=== PATIENT | female | born 1975 | race African-American/Black ===

== ENCOUNTER 2022-01-10 07:15 | Inpatient (IN) | payer SELFPAY ==
[~2022-01-10] VITALS: Ht 160 cm; Wt 111.6 kg
[2022-01-10] MEDS ORDERED: NITROGLYCERIN SUBLINGUAL 0.4 MG BOTTLE OF 25. SL PRN (08:15)
[2022-01-10] MEDS ORDERED: ASPIRIN CHEWABLE 81 MG TABLET. PO ONE (08:15)
[2022-01-10 08:22] LABS: BASO % 0 % (0-3); EOS # 0.1 x10^3/uL (0.0-0.7); EOS % 2 % (0-3); HEMATOCRIT 42.9 % (36.0-47.0); HEMOGLOBIN 14.4 g/dL (12.0-15.5); LYMPH # 1.4 x10^3/uL (1.0-4.8); LYMPH % 27 % (24-48); MEAN CORPUSCULAR HEMOGLOBIN 30 pg (25-35); MEAN CORPUSCULAR HGB CONC 34 g/dL (31-37); MEAN CORPUSCULAR VOLUME 88 fL (79-100); MONO # 0.4 x10^3/uL (0.0-1.1); MONO % 8 % (0-9); NEUT # 3.4 x10^3/uL (1.8-7.7); NEUT % 63 % (31-73); PLATELET COUNT 231 x10^3/uL (140-400); RED BLOOD COUNT 4.85 x10^6/uL (3.50-5.40); RED CELL DISTRIBUTION WIDTH 12.8 % (11.5-14.5); WHITE BLOOD COUNT 5.4 x10^3/uL (4.0-11.0)
[2022-01-10] MEDS: CARVEDILOL 12.5 MG TABLET. PO SCH ×2 (08:23→17:27)
--- NOTE | 2022-01-10 08:27 | RAD ---
EXAMINATION: Chest radiograph. VIEWS: 1 COMPARISON: None INDICATION:46 years, Female, chest pain. FINDINGS: Mild cardiomegaly. Bilateral perihilar ill-defined airspace opacities. No pleural effusion or pneumot horax. No acute osseous process. IMPRESSION: Ill-defined bilateral perihilar airspace opacities, differential consideration includes pulmonary dinora ma versus atypical infection. Electronically signed by: Lucinda Olguin MD (01/10/2022 8:24 AM) [id number]
[2022-01-10 08:31] LABS: CALCIUM 9.1 mg/dL (8.5-10.1); GFR 71.9; POTASSIUM 4.6 mmol/L (3.5-5.1)
--- NOTE | 2022-01-10 08:31 | PHYS DOC ---
Past Medical History Past Medical History: Diabetes-Type II, Hypertension Additional Past Medical Histor: VAGINITIS Past Surgical History: Appendectomy, Cholecystectomy, Hysterectomy Smoking Status: Never Smoker Alcohol Use: None Drug Use: None General Adult EDM: Chief Complaint: CHEST PAIN-CARDIAC NATURE HPI: HPI: Patient is a 46 year old female with a history of diabetes and hypertension who presents with complaints of chest pain. Patient states that for the past week she has had constant left upper chest pain. She states that it radiates into both shoulders and into her back. There are no palliative or provocative factors for the pain. She describes the pain as a pressure. She states it is currently about a 7 or 8 out of 10. She has had some associated nausea but denies any vomiting. She denies any diaphoresis. She states that she ran out of her carvedilol a couple of days ago and has not taken it and therefore has had some elevated blood pressures. She denies any history of DVT or PE. She is currently taking estrogen for the past 3 to 4 months. She denies any recent long car rides or plane rides. She denies any recent surgeries. She denies s moking. She denies any hemoptysis. She denies any history of cancer. Pain was not sudden onset or ripping and tearing. Review of Systems: Review of Systems: Constitutional: Denies fever or chills. [] Eyes: Denies change in visual acuity. [] HENT: Denies nasal congestion or sore throat. [] Respiratory: Denies cough or shortness of breath. [] Cardiovascular: Denies chest pain or edema. [] GI: Denies abdominal pain, nausea, vomiting, bloody stools or diarrhea. [] : Denies dysuria. [] Musculoskeletal: Denies back pain or joint pain. [] Integument: Denies rash. [] Neurologic: Denies headache, focal weakness or sensory changes. [] Endocrine: Denies polyuria or polydipsia. [] Lymphatic: Denies swollen glands. [] Psychiatric: Denies depression or anxiety. [] Heart Score: C/O Chest Pain: Yes HEART Score for Chest Pain: HEART Score for Chest Pain Response (Comments) Value History Moderately Suspicious 1 ECG Nonspecific Repolarizatio 1 Age >45 - < 65 1 Risk Factors 1 or 2 Risk Factors 1 Total 4 Risk Factors: Risk Factors: DM, HTN, family history of CAD, obesity. Risk Scores: Score 0 - 3: 2.5% MACE over next 6 weeks - Discharge Home Score 4 - 6: 20.3% MACE over next 6 weeks - Admit for Clinical Observation Score 7 - 10: 72.7% MACE over next 6 weeks - Early Invasive Strategies Current Medications: Current Medications Medications (Trade) Dose Ordered Sig/Blanca Start Time Stop Time Status Last Admin Dose Admin Aspirin (Aspirin Chewable) 324 mg 1X ONCE 01/10/22 08:15 01/10/22 08:16 DC Carvedilol (Coreg) 12.5 mg BIDWMEALS 01/10/22 08:15 Nitroglycerin (Nitrostat) 0.4 mg PRN Q5MIN PRN 01/10/22 08:15 01/11/22 08:14 Allergies: Allergies: Allergies Coded Allergies Type Severity Reaction Last Updated Verified estradiol Allergy Intermediate 01/10/22 Yes oxycodone Allergy Intermediate 01/10/22 Yes prednisone Allergy Intermediate 01/10/22 Yes Physical Exam: PE: Constitutional: Well developed, well nourished, no acute distress, non-toxic appearance. [] HENT: Normocephalic, atraumatic, bilateral external ears normal, oropharynx moist, no oral exudates, nose normal. [] Eyes: PERRLA, EOMI, conjunctiva normal, no discharge. [] Neck: Normal range of motion, no tenderness, supple, no stridor. [] Cardiovascular:Heart rate regular rhythm, no murmur [] Lungs & Thorax: Bilateral breath sounds clear to auscultation [] Abdomen: Bowel sounds normal, soft, no tenderness, no masses, no pulsatile masses. [] Skin: Warm, dry, no erythema, no rash. [] Back: No tenderness, no CVA tenderness. [] Extremities: No tenderness, no cyanosis, no clubbing, ROM intact, bilateral 1+ edema [] Neurologic: Alert and oriented X 3, normal motor function, normal sensory function, no focal deficits noted. [] Psychologic: Affect normal, judgement normal, mood normal. [] Current Patient Data: Labs: Laboratory Tests Test 01/10/22 08:10 White Blood Count 5.4 x10^3/uL (4.0-11.0) Red Blood Count 4.85 x10^6/uL (3.50-5.40) Hemoglobin 14.4 g/dL (12.0-15.5) Hematocrit 42.9 % (36.0-47.0) Mean Corpuscular Volume 88 fL (79-100) Mean Corpuscular Hemoglobin 30 pg (25-35) Mean Corpuscular Hemoglobin Concent 34 g/dL (31-37) Red Cell Distribution Width 12.8 % (11.5-14.5) Platelet Count 231 x10^3/uL (140-400) Neutrophils (%) (Auto) 63 % (31-73) Lymphocytes (%) (Auto) 27 % (24-48) Monocytes (%) (Auto) 8 % (0-9) Eosinophils (%) (Auto) 2 % (0-3) Basophils (%) (Auto) 0 % (0-3) Neutrophils # (Auto) 3.4 x10^3/uL (1.8-7.7) Lymphocytes # (Auto) 1.4 x10^3/uL (1.0-4.8) Monocytes # (Auto) 0.4 x10^3/uL (0.0-1.1) Eosinophils # (Auto) 0.1 x10^3/uL (0.0-0.7) Basophils # (Auto) 0.0 x10^3/uL (0.0-0.2) Laboratory Tests 01/10/22 08:10 Vital Signs: Vital Signs Date Time Temp Pulse Resp B/P (MAP) Pulse Ox O2 Delivery O2 Flow Rate FiO2 01/10/22 07:45 98.1 83 18 215/114 (147) 99 98.1 EKG: EKG: EKG shows a normal sinus rhythm with a rate of 75. Intervals and axis are normal. There are inferior Q waves in II, III and aVF as well as V1 V2 and V3. No other evidence of ischemia or infarction. Radiology/Procedures: Radiology/Procedures: EXAMINATION: Chest radiograph. VIEWS: 1 COMPARISON: None INDICATION:46 years, Female, chest pain. FINDINGS: Mild cardiomegaly. Bilateral perihilar ill-defined airspace opacities. No pleural effusion or pneumothorax. No acute osseous process. IMPRESSION: Ill-defined bilateral perihilar airspace opacities, differential consideration includes pulmonary edema versus atypical infection. Electronically signed by: Lucinda Olguin MD (01/10/2022 8:24 AM) [id number] Course & Med Decision Making: Course & Med Decision Making Patient is a 46-year-old female with a history of hypertension and diabetes who presents with chest pain. Patient was brought emergently to a room. She was placed on nurse monitoring. She was given aspirin. She was initially hypertensive. She was given a dose of her home carvedilol which she has not taken for the past 2 days. She was also given nitroglycerin for chest pain. Her blood pressure has decreased somewhat. Patient does have bilateral lower extremity edema. Her chest x-ray is concerning for pulmonary edema. Her troponin is negative. EKG shows evidence of inferior and septal Q waves. D- dimer is negative. I do not think this is a pulmonary embolus. I have discussed patient with the hospitalist and will admit to the hospitalist service for diuresis and further cardiac evaluation. [] Dragon Disclaimer: Dragon Disclaimer: This electronic medical record was generated, in whole or in part, using a voice recognition dictation system. Departure Departure Impression: Primary Impression: CHF (congestive heart failure) Qualified Codes: I50.9 - Heart failure, unspecified Additional Impressions: Chest pain Qualified Codes: R07.9 - Chest pain, unspecified Diabetes mellitus Hypertension Qualified Codes: I10 - Essential (primary) hypertension Bilateral lower extremity edema Condition: STABLE Referrals: NO PCP (PCP) LEE KING MD January 10, 2022 08:31
[2022-01-10 08:34] LABS: PREG TEST PT QUAL NEGATIVE (NEG)
[2022-01-10 08:36] LABS: ALBUMIN 3.5 g/dL (3.4-5.0); ALBUMIN/GLOBULIN RATIO 0.7 (1.0-1.7); TOTAL BILIRUBIN 0.3 mg/dL (0.2-1.0); TOTAL PROTEIN 8.2 g/dL (6.4-8.2)
--- NOTE | 2022-01-10 12:04 | HP ---
DATE OF SERVICE: 01/10/2022 ADMIT DATE: 01/10/2022 CHIEF COMPLAINT: Chest pain, shortness of breath. HISTORY OF PRESENT ILLNESS: The patient is a pleasant 46-year-old female who presents to the ER with chest pain that has been occurring for several days, worse with moving, better with sitting still, in the left upper chest radiating to both shoulders. The chest x-ray showing some cardiomegaly and slight vascular congestion. She does appear to have some edema. I discussed the case with ER physician. We are going to admit the patient and consult Cardiology. PAST MEDICAL HISTORY: Diabetes, hypertension, vaginitis, appendectomy, cholecystectomy, hysterectomy. ALLERGIES: ESTRADIOL, OXYCODONE, AND PREDNISONE. FAMILY HISTORY: Coronary artery disease. SOCIAL HISTORY: She does not drink, smoke or take drugs. She is . MEDICATIONS: Reviewed. Please refer to the MRAD. REVIEW OF SYSTEMS: GENERAL: No history of weight change, weakness or fevers. SKIN: No bruising, hair changes or rashes. EYES: No blurred, double or loss of vision. NOSE AND THROAT: No history of nosebleeds, hoarseness or sore throat. HEART: She complains of chest pain. LUNGS: .She complains of shortness of breath. GASTROINTESTINAL: Denies changes in appetite, nausea, vomiting, diarrhea or constipation. GENITOURINARY: No history of frequency, urgency, hesitancy or nocturia. NEUROLOGIC: Denies history of numbness, tingling, tremor or weakness. PSYCHIATRIC: No history of panic, anxiety or depression. ENDOCRINE: No history of heat or cold intolerance, polyuria or polydipsia. EXTREMITIES: Denies muscle weakness, joint pain, pain on walking or stiffness. PHYSICAL EXAMINATION: VITALS: Within normal limits and are stable. GENERAL: No apparent distress. Alert and oriented. HEENT: Normal cephalic atraumatic, external auditory canals are patent EYES: Extraocular muscles are intact, pupils are equally round and reactive to light and accommodation MUSCULOSKELETAL: Well developed, well nourished, good range of motion ENDOCRINE: No thyromegaly was palpated LYMPHATICS: No cervical chain or axillary nodes were noted HEMATOPOIETIC: No bruising NECK: Supple, no JVD, no thyromegaly was noted. LUNGS: She has slight bibasilar crackles. HEART: RRR, S1, S2 present. Peripheral pulses intact, no obvious murmurs were noted. ABDOMEN: Soft, nontender. Positive bowel sounds no organomegaly, normal bowel sounds. EXTREMITIES: She has 2+ edema. NEUROLOGIC: Normal speech, normal tone. A and O x 3, moves all extremities, no obvious focal deficits. PSYCHIATRIC: Normal affect, normal mood. Stable. SKIN: No ulcerations or rashes, good skin turgor, no jaundice. VASCULAR: Good capillary refill, neurovascular bundle appears to be intact. LABORATORY DATA: Troponin is 26. BNP 66. I reviewed the chest x-ray, does show some cardiomegaly and mild vascular congestion. D-dimer 0.27. ASSESSMENT AND PLAN: Chest pain with abnormal chest x-ray. Suspect heart failure. The patient will be admitted. We will check serial enzymes, serial EKGs. Consult Cardiology. Home medications. Deep venous thrombosis prophylaxis. Full code. IV Lasix if Cardiology agrees. P.r.n. nitro. TEE/MELIZA DR: Liudmila TID: [id number]
[2022-01-10] MEDS ORDERED: FUROSEMIDE 40 MG/4 ML VIAL. IVP ONE (12:15)
[2022-01-10] MEDS ORDERED: AMLO-187 PO (12:46)
[2022-01-10] MEDS ORDERED: CARV25TA2 PO (12:46)
[2022-01-10] MEDS ORDERED: LISI10TA16 PO (12:46)
[2022-01-10] MEDS ORDERED: INSU100I13 SQ (12:47)
[2022-01-10] MEDS ORDERED: ASPI81TA59 PO (12:47)
[2022-01-10] MEDS ORDERED: OMEP40CA7 PO (14:31)
[2022-01-10 15:00] VITALS: BP 162/108
[2022-01-10] MEDS ORDERED: DEXTROSE 50% 25 GM / 50ML DISP.SYRIN. IV PRN (15:45)
[2022-01-10] MEDS: ASPIRIN CHEWABLE 81 MG TABLET. PO SCH (16:11)
[2022-01-10] MEDS: LISINOPRIL 10 MG TABLET PO SCH (16:11)
[2022-01-10] MEDS: INSULIN LISPRO 300 UNITS/3 ML VIAL. SQ SCH (17:32)
[2022-01-10 19:34] VITALS: BP 175/100
[2022-01-10] MEDS ORDERED: INSULIN GLARGINE SYRINGE. SQ SCH (21:00)
[2022-01-10] MEDS ORDERED: IBUPROFEN 200 MG TABLET. PO PRN (21:30)
[2022-01-10 22:34] VITALS: BP 147/81
--- NOTE | 2022-01-11 01:10 | EKG ---
[facility] [address] [place] [address] Test Date: 2022-01-10 Test Time: 00:15:18 Pat Name: BRAYAN BARRIOS Department: Room: [facility] Gender: F [employer] Ter[employer] Vehicle [employer]ician: : 1975 Requested By: LEE KING Order Number: [id number] Reading MD: Dustin Tuttle Measurements Intervals [place] Rate: 75 P: 32 [place]: 178 QRS: 23 QRSD: 94 T: 36 QT: 394 QTc: 443 Interpretive Statements SINUS RHYTHM QRS(T) CONTOUR ABNORMALITY CONSIDER ANTEROSEPTAL MYOCARDIAL DAMAGE Electronically Signed On 01-12-2022 11:16:19 CDT by Dustin Tuttle
[2022-01-11 02:37] VITALS: BP 140/84
[2022-01-11 06:11] VITALS: BP 160/93
[2022-01-11] MEDS: ASPIRIN CHEWABLE 81 MG TABLET. PO SCH (08:49)
[2022-01-11] MEDS: PANTOPRAZOLE 40 MG TABLET.DR. PO SCH (08:49)
[2022-01-11] MEDS: LISINOPRIL 10 MG TABLET PO SCH (08:50)
[2022-01-11] MEDS: CARVEDILOL 12.5 MG TABLET. PO SCH ×2 (08:50→17:09)
[2022-01-11] MEDS: INSULIN LISPRO 300 UNITS/3 ML VIAL. SQ SCH ×3 (08:56→17:13)
--- NOTE | 2022-01-11 09:08 | PDOC2 ---
CONSULT Date of Consult Date of Consult DATE: 01/11/22 TIME: 09:08 Reason for Consult Reason for Consult: Chest pain Referring Physician Referring Physician: Dr. Cuellar Identification/Chief Complaint Chief Complaint Chest pain Source Source: Chart review, Patient History of Present Illness Reason for Visit: 46-year-old female without any previous cardiac history presented complaining of retrosternal chest pressure, 7/severity, going on for approximately 1 week. She denied any exertional component. She also complained of associated shortness of breath but denied any orthopnea/PND, palpitations or syncope. She did state that the right side of her body has been tingling and numb. Past Medical History Past Medical History Hypertension Diabetes mellitus type 2 GERD Past Surgical History Past Surgical History Appendectomy Cholecystectomy Hysterectomy Family History Family History Negative for premature coronary artery disease Social History Social History Patient denied any smoking, alcohol or drug use Current Problem List Problem List Problems Medical Problems: (1) Bilateral lower extremity edema Status: Acute (2) Chest pain Status: Acute (3) CHF (congestive heart failure) Status: Acute (4) Diabetes mellitus Status: Acute (5) Hypertension Status: Acute Current Medications Current Medications Current Medications Aspirin (Aspirin Chewable) 324 mg 1X ONCE PO Last administered on 01/10/22at 08:22; Start 01/10/22 at 08:15; Stop 01/10/22 at 08:16; Status DC Nitroglycerin (Nitrostat) 0.4 mg PRN Q5MIN PRN SL CP RATING > 1/10 Last administered on 01/10/22at 08:24; Start 01/10/22 at 08:15; Stop 01/11/22 at 08:14; Status DC Carvedilol (Coreg) 12.5 mg BIDWMEALS PO Last administered on 01/11/22at 08:50; Start 01/10/22 at 08:15 Furosemide (Lasix) 40 mg 1X ONCE IVP Last administered on 01/10/22at 12:43; Start 01/10/22 at 12:15; Stop 01/10/22 at 12:16; Status DC Amlodipine Besylate (Norvasc) 10 mg DAILY PO Last administered on 01/11/22at 08:50; Start 01/11/22 at 09:00 Aspirin (Aspirin Chewable) 81 mg DAILY PO Last administered on 01/11/22at 08:49; Start 01/10/22 at 16:00 Lisinopril (Prinivil) 10 mg DAILY PO Last administered on 01/11/22at 08:50; Start 01/10/22 at 16:00 Insulin Glargine (Lantus Syringe) 20 unit QHS SQ Last administered on 01/10/22at 20:34; Start 01/10/22 at 21:00 Pantoprazole Sodium (Protonix) 40 mg DAILY PO Last administered on 01/11/22at 08:49; Start 01/11/22 at 09:00 Insulin Human Lispro (HumaLOG) 0-5 UNITS TIDWMEALS SQ Last administered on 01/11/22at 08:56; Start 01/10/22 at 17:00 Dextrose (Dextrose 50%-Water Syringe) 12.5 gm PRN Q15MIN PRN IV SEE COMMENTS; Start 01/10/22 at 15:45 Ibuprofen (Motrin) 600 mg PRN Q6HRS PRN PO INFLAMMATION Last administered on 01/10/22at 21:27; Start 01/10/22 at 21:30 Active Scripts Active Reported Omeprazole 40 Mg Capsule.dr 1 Cap PO DAILY Lantus Solostar (Insulin Glargine,Hum.rec.anlog) 100 Unit/1 Ml Insuln.pen 20 Unit SQ QHS Children's Aspirin (Aspirin) 81 Mg Tab.chew 1 Tab PO DAILY 30 Days Lisinopril 10 Mg Tablet 1 Tab PO DAILY Amlodipine Besylate 10 Mg Tablet 10 Mg PO DAILY Carvedilol 25 Mg Tablet 12.5 Mg PO BIDWMEALS Allergies Allergies: Coded Allergies: estradiol (Verified Allergy, Intermediate, 01/10/22) oxycodone (Verified Allergy, Intermediate, 01/10/22) prednisone (Verified Allergy, Intermediate, 01/10/22) ROS PSYCHOLOGICAL ROS: No: Hallucinations Eyes: No Loss of vision HEENT: No: Epistaxis Respiratory: YES: Shortness of breath; No: Hemoptysis Cardiovascular: yes Chest Pain Gastrointestinal: No Vomiting, No Diarrhea Genitourinary: No Hematuria Neurological: No Seizures Skin: No Rash Physical Exam General: Alert, Oriented X3 HEENT: Atraumatic Lungs: Clear to auscultation Heart: Regular rate Abdomen: Soft Extremities: Other (1+ pitting edema) Vitals VITALS Vital Signs Date Time Temp Pulse Resp B/P (MAP) Pulse Ox O2 Delivery O2 Flow Rate FiO2 01/11/22 08:50 71 160/93 01/11/22 06:11 97.9 16 96 Room Air 97.9 Labs Labs Laboratory Tests Test 01/10/22 08:10 01/10/22 11:15 01/10/22 14:10 01/10/22 16:46 White Blood Count 5.4 x10^3/uL (4.0-11.0) Red Blood Count 4.85 x10^6/uL (3.50-5.40) Hemoglobin 14.4 g/dL (12.0-15.5) Hematocrit 42.9 % (36.0-47.0) Mean Corpuscular Volume 88 fL (79-100) Mean Corpuscular Hemoglobin 30 pg (25-35) Mean Corpuscular Hemoglobin Concent 34 g/dL (31-37) Red Cell Distribution Width 12.8 % (11.5-14.5) Platelet Count 231 x10^3/uL (140-400) Neutrophils (%) (Auto) 63 % (31-73) Lymphocytes (%) (Auto) 27 % (24-48) Monocytes (%) (Auto) 8 % (0-9) Eosinophils (%) (Auto) 2 % (0-3) Basophils (%) (Auto) 0 % (0-3) Neutrophils # (Auto) 3.4 x10^3/uL (1.8-7.7) Lymphocytes # (Auto) 1.4 x10^3/uL (1.0-4.8) Monocytes # (Auto) 0.4 x10^3/uL (0.0-1.1) Eosinophils # (Auto) 0.1 x10^3/uL (0.0-0.7) Basophils # (Auto) 0.0 x10^3/uL (0.0-0.2) D-Dimer (Alisha) < 0.27 ug/mlFEU Sodium Level 135 mmol/L (136-145) Potassium Level 4.6 mmol/L (3.5-5.1) Chloride Level 101 mmol/L (98-107) Carbon Dioxide Level 25 mmol/L (21-32) Anion Gap 9 (6-14) Blood Urea Nitrogen 14 mg/dL (7-20) Creatinine 1.0 mg/dL (0.6-1.0) Estimated GFR (Cockcroft-Gault) 71.9 BUN/Creatinine Ratio 14 (6-20) Glucose Level 352 mg/dL (70-99) Calcium Level 9.1 mg/dL (8.5-10.1) Total Bilirubin 0.3 mg/dL (0.2-1.0) Aspartate Amino Transf (AST/SGOT) 20 U/L (15-37) Alanine Aminotransferase (ALT/SGPT) 22 U/L (14-59) Alkaline Phosphatase 123 U/L (46-116) Troponin I High Sensitivity 26 ng/L (4-50) 23 ng/L (4-50) 24 ng/L (4-50) EO-Yfg-L-Type Natriuretic Peptide 66 pg/mL (0-124) Total Protein 8.2 g/dL (6.4-8.2) Albumin 3.5 g/dL (3.4-5.0) Albumin/Globulin Ratio 0.7 (1.0-1.7) Lipase 123 U/L (73-393) Serum Test, Qualitative Negative (NEG) Glucose (Fingerstick) 312 mg/dL (70-99) Test 01/10/22 20:27 01/11/22 06:27 Glucose (Fingerstick) 343 mg/dL (70-99) 198 mg/dL (70-99) Laboratory Tests Test 01/10/22 11:15 01/10/22 14:10 01/10/22 16:46 01/10/22 20:27 Troponin I High Sensitivity 23 ng/L (4-50) 24 ng/L (4-50) Glucose (Fingerstick) 312 mg/dL (70-99) 343 mg/dL (70-99) Test 01/11/22 06:27 Glucose (Fingerstick) 198 mg/dL (70-99) Assessment/Plan Assessment/Plan 1. Chest pain with atypical features, reproducible to palpation and most probably musculoskeletal. Myocardial infarction has been ruled out. We will consider ischemic evaluation as an outpatient. 2. Congestive heart failure, most probably acute on chronic diastolic. Patient received Lasix IV in the ED and is better compensated. Start oral Lasix. Check 2D echo to assess LV systolic function. 3. Accelerated hypertension: Better controlled since admission. Increase lisinopril dose and continue Coreg and amlodipine. We will obtain renal arterial duplex scan for further evaluation. 4. Diabetes mellitus type 2: Treat per IM Thank you for your consultation SEA RAYA MD January 11, 2022 09:08
[2022-01-11 10:52] LABS: BASO % 0 % (0-3); EOS # 0.1 x10^3/uL (0.0-0.7); EOS % 3 % (0-3); HEMATOCRIT 39.9 % (36.0-47.0); HEMOGLOBIN 13.4 g/dL (12.0-15.5); LYMPH # 1.6 x10^3/uL (1.0-4.8); LYMPH % 34 % (24-48); MEAN CORPUSCULAR HEMOGLOBIN 30 pg (25-35); MEAN CORPUSCULAR HGB CONC 34 g/dL (31-37); MEAN CORPUSCULAR VOLUME 89 fL (79-100); MONO # 0.3 x10^3/uL (0.0-1.1); MONO % 7 % (0-9); NEUT # 2.6 x10^3/uL (1.8-7.7); NEUT % 56 % (31-73); PLATELET COUNT 218 x10^3/uL (140-400); RED BLOOD COUNT 4.49 x10^6/uL (3.50-5.40); RED CELL DISTRIBUTION WIDTH 12.8 % (11.5-14.5); WHITE BLOOD COUNT 4.7 x10^3/uL (4.0-11.0)
[2022-01-11 11:00] VITALS: BP 149/95
[2022-01-11 11:09] LABS: ALBUMIN 2.8 g/dL (3.4-5.0); ALBUMIN/GLOBULIN RATIO 0.7 (1.0-1.7); CALCIUM 8.4 mg/dL (8.5-10.1); CREATININE 0.9 mg/dL (0.6-1.0); GFR 81.2; POTASSIUM 3.8 mmol/L (3.5-5.1); TOTAL BILIRUBIN 0.2 mg/dL (0.2-1.0); TOTAL PROTEIN 6.8 g/dL (6.4-8.2)
[2022-01-11] MEDS: GABAPENTIN 300 MG CAPSULE. PO SCH ×2 (13:13→20:49)
--- NOTE | 2022-01-11 14:21 | PDOC ---
GENERAL General: Patient examined chart reviewed today is hospital day 2 for this patient with insulin-dependent type 2 diabetes with hyperglycemia she is not certain of her last A1c, significant obesity, hypertension, admitted with right upper and lower extremity numbness, tingling, and substernal chest pressure. She has not had assessment for the right upper and lower extremity symptoms thought she did tell the emergency department that was the reason that she presented. She has been evaluated only for the mid substernal chest pressure. Appreciate cardiology assessment. Plan is for echocardiogram and outpatient stress test. She tells me that pain is somewhat improved. Patient is significantly hyperglycemic. We will adjust her insulin. A1c is pending. Fasting lipids are ordered for the morning. Patient's been taking an aspirin daily we will add Plavix while we engage in a stroke work-up. Patient does not need a teleneurology visit, but given the paresthesias of that right upper and lower extremity we will need to rule out brainstem stroke. Go ahead and order an MRI brain for the morning. Patient is significantly anxious we may need to start her on low-dose Escitalopram to help mediate her symptoms. She has recently relocated out to [facility] and is asking for a list of local primary care physicians to get engaged in care. Time spent today is 30 minutes with greater than 50% in counseling and coordination of care most of which in discussion with patient regarding care plan and progress. Problems: (1) Diabetes mellitus (2) Bilateral lower extremity edema (3) Numbness on right side (4) Hypertension VITAL SIGNS Vital Signs/I&O: Vital Signs Date Time Temp Pulse Resp B/P (MAP) Pulse Ox O2 Delivery O2 Flow Rate FiO2 01/11/22 11:00 97.9 71 18 149/95 (113) 97 Room Air 97.9 I & O 01/10/22 01/10/22 01/11/22 15:00 23:00 07:00 Intake Total 60 ml 0 ml Output Total 1500 ml Balance -1440 ml 0 ml In general patient is pleasant chatty anxious alert and oriented x3 no acute distress HEENT exam is unremarkable Neck is soft and supple no adenopathy or thyromegaly noted Chest is clear to auscultation Heart S1-S2 normal regular rate and rhythm no murmurs or gallops are noted Abdomen soft nontender nondistended no masses organomegaly noted Extremity exam is notable for full strength in her bilateral upper extremities, right lower extremity notable for 4-5 strength. Sensory deficit right upper and lower extremity. Pulses are intact throughout ALLERGIES Allergies: Allergies Coded Allergies Type Severity Reaction Last Updated Verified estradiol Allergy Intermediate 01/10/22 Yes oxycodone Allergy Intermediate 01/10/22 Yes prednisone Allergy Intermediate 01/10/22 Yes MEDS Medications: Current Medications Medications (Trade) Dose Ordered Sig/Blanca Start Time Stop Time Status Last Admin Dose Admin Amlodipine Besylate (Norvasc) 10 mg DAILY 01/11/22 09:00 01/11/22 08:50 Aspirin (Aspirin Chewable) 81 mg DAILY 01/10/22 16:00 01/11/22 08:49 Carvedilol (Coreg) 12.5 mg BIDWMEALS 01/10/22 08:15 01/11/22 08:50 Dextrose (Dextrose 50%-Water Syringe) 12.5 gm PRN Q15MIN PRN 01/10/22 15:45 Furosemide (Lasix) 20 mg DAILY 01/12/22 09:00 Gabapentin (Neurontin) 300 mg BID 01/11/22 13:00 01/11/22 13:13 Ibuprofen (Motrin) 600 mg PRN Q6HRS PRN 01/10/22 21:30 01/10/22 21:27 Insulin Glargine (Lantus Syringe) 30 unit QHS 01/11/22 21:00 Insulin Human Lispro (HumaLOG) 0-5 UNITS TIDWMEALS 01/10/22 17:00 01/11/22 12:20 Lisinopril (Prinivil) 20 mg DAILY 01/12/22 09:00 Nitroglycerin (Nitrostat) 0.4 mg PRN Q5MIN PRN 01/10/22 08:15 01/11/22 08:14 DC 01/10/22 08:24 Pantoprazole Sodium (Protonix) 40 mg DAILY 01/11/22 09:00 01/11/22 08:49 Current Medications Medications (Trade) Dose Ordered Sig/Blanca Route PRN Reason Start Time Stop Time Status Last Admin Dose Admin Amlodipine Besylate (Norvasc) 10 mg DAILY PO 01/11/22 09:00 01/11/22 08:50 Aspirin (Aspirin Chewable) 81 mg DAILY PO 01/10/22 16:00 01/11/22 08:49 Lisinopril (Prinivil) 10 mg DAILY PO 01/10/22 16:00 01/11/22 12:00 DC 01/11/22 08:50 Insulin Glargine (Lantus Syringe) 20 unit QHS SQ 01/10/22 21:00 01/11/22 09:24 DC 01/10/22 20:34 Pantoprazole Sodium (Protonix) 40 mg DAILY PO 01/11/22 09:00 01/11/22 08:49 Insulin Human Lispro (HumaLOG) 0-5 UNITS TIDWMEALS SQ 01/10/22 17:00 01/11/22 12:20 Ibuprofen (Motrin) 600 mg PRN Q6HRS PRN PO INFLAMMATION 01/10/22 21:30 01/10/22 21:27 Gabapentin (Neurontin) 300 mg BID PO 01/11/22 13:00 01/11/22 13:13 LAB Lab: Laboratory Tests Test 01/10/22 16:46 01/10/22 20:27 01/11/22 06:27 01/11/22 10:40 Glucose (Fingerstick) 312 mg/dL (70-99) H 343 mg/dL (70-99) H 198 mg/dL (70-99) H White Blood Count 4.7 x10^3/uL (4.0-11.0) Red Blood Count 4.49 x10^6/uL (3.50-5.40) Hemoglobin 13.4 g/dL (12.0-15.5) Hematocrit 39.9 % (36.0-47.0) Mean Corpuscular Volume 89 fL (79-100) Mean Corpuscular Hemoglobin 30 pg (25-35) Mean Corpuscular Hemoglobin Concent 34 g/dL (31-37) Red Cell Distribution Width 12.8 % (11.5-14.5) Platelet Count 218 x10^3/uL (140-400) Neutrophils (%) (Auto) 56 % (31-73) Lymphocytes (%) (Auto) 34 % (24-48) Monocytes (%) (Auto) 7 % (0-9) Eosinophils (%) (Auto) 3 % (0-3) Basophils (%) (Auto) 0 % (0-3) Neutrophils # (Auto) 2.6 x10^3/uL (1.8-7.7) Lymphocytes # (Auto) 1.6 x10^3/uL (1.0-4.8) Monocytes # (Auto) 0.3 x10^3/uL (0.0-1.1) Eosinophils # (Auto) 0.1 x10^3/uL (0.0-0.7) Basophils # (Auto) 0.0 x10^3/uL (0.0-0.2) Sodium Level 133 mmol/L (136-145) L Potassium Level 3.8 mmol/L (3.5-5.1) Chloride Level 100 mmol/L (98-107) Carbon Dioxide Level 25 mmol/L (21-32) Anion Gap 8 (6-14) Blood Urea Nitrogen 13 mg/dL (7-20) Creatinine 0.9 mg/dL (0.6-1.0) Estimated GFR (Cockcroft-Gault) 81.2 BUN/Creatinine Ratio 14 (6-20) Glucose Level 305 mg/dL (70-99) H Calcium Level 8.4 mg/dL (8.5-10.1) L Total Bilirubin 0.2 mg/dL (0.2-1.0) Aspartate Amino Transferase (AST) 10 U/L (15-37) L Alanine Aminotransferase (ALT) 21 U/L (14-59) Alkaline Phosphatase 83 U/L (46-116) Total Protein 6.8 g/dL (6.4-8.2) Albumin 2.8 g/dL (3.4-5.0) L Albumin/Globulin Ratio 0.7 (1.0-1.7) L Test 01/11/22 10:45 01/11/22 11:25 SARS-CoV-2 Antigen (Rapid) Negative (NEGATIVE) Glucose (Fingerstick) 276 mg/dL (70-99) H Laboratory Tests 01/11/22 10:40 Laboratory Tests 01/11/22 10:40 ASSESSMENT & PLAN A&P Plan as noted above This note was created using Glio and may have omissions and/or errors due to the nature of real-time voice medical sales associate. Justifications for Admission Other Justification Problem Qualifiers (1) Diabetes mellitus: Diabetes mellitus type: type 2 (2) Hypertension: Hypertension type: unspecified Qualified Codes: I10 - Essential (primary) hypertension MARLEE HUI MD January 11, 2022 14:21
[2022-01-11 14:56] VITALS: BP 136/94
[2022-01-11] MEDS: CLOPIDOGREL BISULFATE 75 MG TABLET PO SCH (17:08)
[2022-01-11 18:55] VITALS: BP 136/83
[2022-01-11] MEDS: INSULIN GLARGINE SYRINGE. SQ SCH (20:52)
[2022-01-11 22:06] VITALS: BP 161/93
[2022-01-12 02:07] LABS: HEMOGLOBIN A1C 12.3 % (4.8-5.6)
[2022-01-12 03:24] VITALS: BP 146/89
[2022-01-12 04:05] LABS: BASO % 0 % (0-3); EOS # 0.1 x10^3/uL (0.0-0.7); EOS % 3 % (0-3); HEMATOCRIT 40.4 % (36.0-47.0); LYMPH # 1.8 x10^3/uL (1.0-4.8); LYMPH % 38 % (24-48); MEAN CORPUSCULAR HEMOGLOBIN 30 pg (25-35); MEAN CORPUSCULAR HGB CONC 35 g/dL (31-37); MEAN CORPUSCULAR VOLUME 88 fL (79-100); MONO # 0.4 x10^3/uL (0.0-1.1); MONO % 9 % (0-9); NEUT # 2.3 x10^3/uL (1.8-7.7); NEUT % 50 % (31-73); PLATELET COUNT 217 x10^3/uL (140-400); RED BLOOD COUNT 4.59 x10^6/uL (3.50-5.40); RED CELL DISTRIBUTION WIDTH 13.2 % (11.5-14.5); WHITE BLOOD COUNT 4.6 x10^3/uL (4.0-11.0)
[2022-01-12 04:31] LABS: ALBUMIN 2.7 g/dL (3.4-5.0); ALBUMIN/GLOBULIN RATIO 0.7 (1.0-1.7); CALCIUM 8.9 mg/dL (8.5-10.1); CREATININE 0.9 mg/dL (0.6-1.0); GFR 81.2; POTASSIUM 3.5 mmol/L (3.5-5.1); TOTAL BILIRUBIN 0.2 mg/dL (0.2-1.0); TOTAL PROTEIN 6.7 g/dL (6.4-8.2)
[2022-01-12 04:45] LABS: CHOLESTEROL/HDL RATIO 3.8
[2022-01-12 07:00] VITALS: BP 171/109
[2022-01-12] MEDS: CARVEDILOL 12.5 MG TABLET. PO SCH ×2 (08:50→17:37)
[2022-01-12] MEDS: FUROSEMIDE 20 MG TABLET PO SCH (08:50)
[2022-01-12] MEDS: ASPIRIN CHEWABLE 81 MG TABLET. PO SCH (08:50)
[2022-01-12] MEDS: CLOPIDOGREL BISULFATE 75 MG TABLET PO SCH (08:50)
[2022-01-12] MEDS: GABAPENTIN 300 MG CAPSULE. PO SCH ×2 (08:50→20:54)
[2022-01-12] MEDS: PANTOPRAZOLE 40 MG TABLET.DR. PO SCH (08:50)
[2022-01-12] MEDS: HYDROcodone/APAP 5/325MG 1 TAB TABLET PO PRN (08:51)
--- NOTE | 2022-01-12 08:54 | RAD ---
MR#: [id number] Date of Study: 01/11/2022 Ordering Physician: SEA COTO, Referring Physician: SEA COTO, Tech: Rom Hadley MBA, RDMS, RVT, RDCS, RTR APPROVED REPORT Patient Location: IN-PATIENT Indications Uncontrolled HTN Renal Artery Doppler Right Renal Artery Left Renal Arter y Proximal 110.0/31.0 cm/secProximal 70.0/21.0 cm/sec Mid 87.0/30.0 cm/secMid 69.0/21.0 cm/sec Distal 99.0/30.0 cm/secDistal 57.0/20.0 cm/sec Renal/Aorta Ratio 1.24Renal/Aorta Ratio 0.78 Prox. Resistive Index 0.72Prox. Resistive Index 0.70 Mid Resistive Index 0.66Mid Resistive Index 0.70 Distal Resistive Index 0.69Distal Resistive Index 0.66 Rt. Segmental A. 29.0/8.0 cm/secLt. Segmental A. 23.0/9.0 cm/sec Renal Measurements RightLeft Kidney Zngfgk76.1 cm cmKidney Nrvnwc71.0 cm cm Right Additional FindingsLeft Additional Findings Findings Grayscale images of bilateral kidneys and renal arteries were grossly unremarkable. The right kidney measured 12.1 cm and the left kidney measures 12.0 cm. Spectral waveform and color duplex analysis showed normal velocities in the proximal, middle and distal segments of the renal arteries bilaterall y. The resistive indices and renal artery to aortic ratios were within normal admission bilaterally. No evidence of renal artery stenosis. Critical Notification Critical Value: No <Conclusion> Renal arterial duplex scan did not show any significant renal artery stenosis Signed by : Sea Coto, Electronically Approved : 01/12/2022 08:54:31
[2022-01-12] MEDS: INSULIN LISPRO 300 UNITS/3 ML VIAL. SQ SCH ×3 (08:57→17:41)
[2022-01-12] MEDS ORDERED: LISINOPRIL 20 MG TABLET PO SCH (09:00)
[2022-01-12 11:00] VITALS: BP 174/92
--- NOTE | 2022-01-12 11:19 | PDOC ---
ABE YEH WAREHOUSE LOGISTICS MANAGER 01/12/22 1119: CARDIO Progress Notes Date and Time Date of Service 01/12/22 Time of Evaluation 1115 Subjective Subjective: No Chest Pain, No shortness of breath, No Palpitations, Other (right-sided numbness) Vitals Vitals Vital Signs Date Time Temp Pulse Resp B/P (MAP) Pulse Ox O2 Delivery O2 Flow Rate FiO2 01/12/22 09:21 Room Air 01/12/22 08:51 75 171/109 01/12/22 07:00 98.4 18 98 98.4 Weight Weight [ ] Input and Output Intake and Output Intake and Output 01/12/22 07:00 Intake Total 1340 ml Output Total 2625 ml Balance -1285 ml Intake Oral 1340 ml Output Urine Total 2625 ml Laboratory Labs Laboratory Tests Test 01/11/22 11:25 01/11/22 16:20 01/11/22 20:23 01/12/22 02:45 Glucose (Fingerstick) 276 mg/dL (70-99) 249 mg/dL (70-99) 305 mg/dL (70-99) White Blood Count 4.6 x10^3/uL (4.0-11.0) Red Blood Count 4.59 x10^6/uL (3.50-5.40) Hemoglobin 14.0 g/dL (12.0-15.5) Hematocrit 40.4 % (36.0-47.0) Mean Corpuscular Volume 88 fL (79-100) Mean Corpuscular Hemoglobin 30 pg (25-35) Mean Corpuscular Hemoglobin Concent 35 g/dL (31-37) Red Cell Distribution Width 13.2 % (11.5-14.5) Platelet Count 217 x10^3/uL (140-400) Neutrophils (%) (Auto) 50 % (31-73) Lymphocytes (%) (Auto) 38 % (24-48) Monocytes (%) (Auto) 9 % (0-9) Eosinophils (%) (Auto) 3 % (0-3) Basophils (%) (Auto) 0 % (0-3) Neutrophils # (Auto) 2.3 x10^3/uL (1.8-7.7) Lymphocytes # (Auto) 1.8 x10^3/uL (1.0-4.8) Monocytes # (Auto) 0.4 x10^3/uL (0.0-1.1) Eosinophils # (Auto) 0.1 x10^3/uL (0.0-0.7) Basophils # (Auto) 0.0 x10^3/uL (0.0-0.2) Sodium Level 139 mmol/L (136-145) Potassium Level 3.5 mmol/L (3.5-5.1) Chloride Level 104 mmol/L (98-107) Carbon Dioxide Level 27 mmol/L (21-32) Anion Gap 8 (6-14) Blood Urea Nitrogen 11 mg/dL (7-20) Creatinine 0.9 mg/dL (0.6-1.0) Estimated GFR (Cockcroft-Gault) 81.2 BUN/Creatinine Ratio 12 (6-20) Glucose Level 210 mg/dL (70-99) Calcium Level 8.9 mg/dL (8.5-10.1) Total Bilirubin 0.2 mg/dL (0.2-1.0) Aspartate Amino Transf (AST/SGOT) 21 U/L (15-37) Alanine Aminotransferase (ALT/SGPT) 31 U/L (14-59) Alkaline Phosphatase 79 U/L (46-116) Total Protein 6.7 g/dL (6.4-8.2) Albumin 2.7 g/dL (3.4-5.0) Albumin/Globulin Ratio 0.7 (1.0-1.7) Triglycerides Level 91 mg/dL (0-150) Cholesterol Level 188 mg/dL (0-200) LDL Cholesterol, Calculated 120 mg/dL (0-100) VLDL Cholesterol, Calculated 18 mg/dL (0-40) Non-HDL Cholesterol Calculated 138 mg/dL (0-129) HDL Cholesterol 50 mg/dL (40-60) Cholesterol/HDL Ratio 3.8 Vitamin B12 Level 710 pg/mL (247-911) Thyroid Stimulating Hormone (TSH) 0.996 uIU/mL (0.358-3.74) Test 01/12/22 07:34 Glucose (Fingerstick) 166 mg/dL (70-99) Physical Exam HEENT: Neck Supple W Full Motion Chest: Symmetric LUNGS: Clear to Auscultation Heart: RRR Abdomen: Soft N/T Extremities: No Edema Neurology: alert, oriented, follow commands Assessment Assessment 1. Chest pain with atypical features, reproducible to palpation and most probably musculoskeletal. Myocardial infarction has been ruled out. We will consider ischemic evaluation as an outpatient. 2. Congestive heart failure, most probably acute on chronic diastolic. Patient received Lasix IV in the ED and is better compensated. Check 2D echo to assess LV systolic function. Oral Lasix therapy 3. Accelerated hypertension: Remains elevated. Renal arterial duplex did not s how any significant ILIANA. Increase lisinopril dose and continue Coreg and amlodipine. 4. Diabetes mellitus type 2: Treat per IM 5. Right-sided tingling. MRI brain today 6. Hyperlipidemia; [id number]. statin Justicifation of Admission Dx: Justifications for Admission: Justification of Admission Dx: Yes Comments: Chest pain Right-sided numbness Accelerated hypertension SEA RAYA MD 01/12/22 0524: CARDIO Progress Notes Assessment Assessment Patient seen and examined. Agree with ASSISTANT PROFESSOR OF RADIOLOGY's assessment and plan. Ac on chr diast HF better compensated CP with atypical features 2D echo showed normal LVF without any WMA Plan ischemic evaluation as outpatient ABE YEH APRN January 12, 2022 11:19 SEA RAYA MD January 12, 2022 18:24
--- NOTE | 2022-01-12 12:55 | PDOC ---
[facility] PROGRESS NOTE Date of Service DOS: DATE: 01/12/22 TIME: 12:24 Chief Complaint Chief Complaint Chest pain with atypical features, reproducible to palpation and most probably musculoskeletal. Myocardial infarction has been ruled out. We will consider ischemic evaluation as an outpatient. Congestive heart failure, most probably acute on chronic diastolic. Patient received Lasix IV in the ED and is better compensated. Start oral Lasix. Check 2D echo to assess LV systolic function. Accelerated hypertension: Better controlled since admission. Increase lisinopril dose and continue Coreg and amlodipine. We will obtain renal arterial duplex scan for further evaluation. Diabetes mellitus type 2 - needs to restart medications Right sided numbness -evaluation till 12 hours after symptoms initially. Started on Plavix in addition to aspirin and high intensity statin. Still symptomatic and atypical CVA syndrome left lacunar infarct History of Present Illness History of Present Illness Ms Hutton is a 46-year-old female with PMHx HTN, DM2 who presented to ED on 01/10/22 c/o retrosternal chest pressure, 7/10 in severity, going on for approximately 1 week. She denied any exertional component. She also complained of associated shortness of breath but denied any orthopnea/PND, palpitations or syncope. She did state that the right side of her body has been tingling and numb and her face, noted to ED triage as well as cardiology and noted still persistent on 01/11/2022. 01/12: Restart amlodipine and lisinopril carvedilol. BP still elevated still with right-sided numbness including the face. Given the right-sided symptoms present on admission but been there since 01/09/2022 added Plavix and MRI is pending we will continue aspirin statin and follow-up on MRI results echocardiogram per cardiology. Needs improved BP control given symptoms consistent with possible recent CVA. Will need to establish primary care to continue medications beyond 3 months. She recently moved to [facility]. Vitals/I&O Vitals/I&O: Vital Signs Date Time Temp Pulse Resp B/P (MAP) Pulse Ox O2 Delivery O2 Flow Rate FiO2 01/12/22 09:21 Room Air 01/12/22 08:51 75 171/109 01/12/22 07:00 98.4 18 98 98.4 I & O 01/11/22 01/11/22 01/12/22 14:59 22:59 06:59 Intake Total 840 ml 500 ml Output Total 1925 ml 700 ml Balance 840 ml -1925 ml -200 ml Physical Exam General: Alert, Oriented X3 Heart: Regular rate Abdomen: Soft Extremities: Other (1+ pitting edema) Labs Labs: Laboratory Tests Test 01/11/22 16:20 01/11/22 20:23 01/12/22 02:45 01/12/22 07:34 Glucose (Fingerstick) 249 mg/dL (70-99) 305 mg/dL (70-99) 166 mg/dL (70-99) White Blood Count 4.6 x10^3/uL (4.0-11.0) Red Blood Count 4.59 x10^6/uL (3.50-5.40) Hemoglobin 14.0 g/dL (12.0-15.5) Hematocrit 40.4 % (36.0-47.0) Mean Corpuscular Volume 88 fL (79-100) Mean Corpuscular Hemoglobin 30 pg (25-35) Mean Corpuscular Hemoglobin Concent 35 g/dL (31-37) Red Cell Distribution Width 13.2 % (11.5-14.5) Platelet Count 217 x10^3/uL (140-400) Neutrophils (%) (Auto) 50 % (31-73) Lymphocytes (%) (Auto) 38 % (24-48) Monocytes (%) (Auto) 9 % (0-9) Eosinophils (%) (Auto) 3 % (0-3) Basophils (%) (Auto) 0 % (0-3) Neutrophils # (Auto) 2.3 x10^3/uL (1.8-7.7) Lymphocytes # (Auto) 1.8 x10^3/uL (1.0-4.8) Monocytes # (Auto) 0.4 x10^3/uL (0.0-1.1) Eosinophils # (Auto) 0.1 x10^3/uL (0.0-0.7) Basophils # (Auto) 0.0 x10^3/uL (0.0-0.2) Sodium Level 139 mmol/L (136-145) Potassium Level 3.5 mmol/L (3.5-5.1) Chloride Level 104 mmol/L (98-107) Carbon Dioxide Level 27 mmol/L (21-32) Anion Gap 8 (6-14) Blood Urea Nitrogen 11 mg/dL (7-20) Creatinine 0.9 mg/dL (0.6-1.0) Estimated GFR (Cockcroft-Gault) 81.2 BUN/Creatinine Ratio 12 (6-20) Glucose Level 210 mg/dL (70-99) Calcium Level 8.9 mg/dL (8.5-10.1) Total Bilirubin 0.2 mg/dL (0.2-1.0) Aspartate Amino Transf (AST/SGOT) 21 U/L (15-37) Alanine Aminotransferase (ALT/SGPT) 31 U/L (14-59) Alkaline Phosphatase 79 U/L (46-116) Total Protein 6.7 g/dL (6.4-8.2) Albumin 2.7 g/dL (3.4-5.0) Albumin/Globulin Ratio 0.7 (1.0-1.7) Triglycerides Level 91 mg/dL (0-150) Cholesterol Level 188 mg/dL (0-200) LDL Cholesterol, Calculated 120 mg/dL (0-100) VLDL Cholesterol, Calculated 18 mg/dL (0-40) Non-HDL Cholesterol Calculated 138 mg/dL (0-129) HDL Cholesterol 50 mg/dL (40-60) Cholesterol/HDL Ratio 3.8 Vitamin B12 Level 710 pg/mL (247-911) Thyroid Stimulating Hormone (TSH) 0.996 uIU/mL (0.358-3.74) Test 01/12/22 11:21 Glucose (Fingerstick) 263 mg/dL (70-99) Assessment and Plan Assessmemt and Plan Problems Medical Problems: (1) Bilateral lower extremity edema Status: Acute (2) Chest pain Status: Acute (3) CHF (congestive heart failure) Status: Acute (4) Diabetes mellitus Status: Acute (5) Hypertension Status: Acute Comment Review of Relevant I have reviewed the following items shannon (where applicable) has been applied. Medications: Current Medications Medications (Trade) Dose Ordered Sig/Blanca Route PRN Reason Start Time Stop Time Status Last Admin Dose Admin Insulin Glargine (Lantus Syringe) 30 unit QHS SQ 01/11/22 21:00 01/11/22 20:52 Lisinopril (Prinivil) 20 mg DAILY PO 01/12/22 09:00 01/12/22 08:51 Furosemide (Lasix) 20 mg DAILY PO 01/12/22 09:00 01/12/22 08:50 Gabapentin (Neurontin) 300 mg BID PO 01/11/22 13:00 01/12/22 08:50 Clopidogrel Bisulfate (Plavix) 75 mg DAILY PO 01/11/22 14:15 01/12/22 08:50 Acetaminophen/ Hydrocodone Bitart (Lortab 5/325) 1 tab PRN Q6HRS PRN PO PAIN 01/12/22 08:00 01/12/22 08:51 Justifications for Admission Other Justification JESSICA BLANCO MD January 12, 2022 12:55
[2022-01-12] MEDS ORDERED: INSU100I13 SQ (13:03)
[2022-01-12] MEDS ORDERED: LISI20TA18 PO (13:03)
[2022-01-12] MEDS ORDERED: INSU100I51 SQ (13:03)
[2022-01-12] MEDS ORDERED: AMLO-187 PO (13:03)
[2022-01-12] MEDS ORDERED: CARV25TA2 PO (13:03)
[2022-01-12] MEDS ORDERED: PERFLUTREN PROTEIN-A MICROSPHR 0.22 MG/ML 3 ML VIAL. IVP ONE (13:45)
[2022-01-12 15:00] VITALS: BP 159/83
[2022-01-12] MEDS ORDERED: LISINOPRIL 10 MG TABLET PO ONE (15:00)
--- NOTE | 2022-01-12 15:11 | RAD ---
MRI BRAIN WO Date: 01/12/2022 1:22 PM Indication: rule out thalamic stroke, right sided numbness. Comparison: None. Technique: Multiplanar multisequence MRI of the brain was performed without intravenous contrast usin g the standard protocol. Findings: Focus of restricted diffusion in the left lateral thalamus. No acute hemorrhage. Greatest susceptibil ity artifact in the bilateral thalami and right parietal lobe consistent with chronic microhemorrhage . The ventricles are normal in size and configuration without hydrocephalus. Extensive FLAIR hyperint ense signal in the subcortical and periventricular deep white matter, a nonspecific finding, most com monly seen with chronic small vessel ischemic disease. The scalp and calvarium are normal. The pituitary and sella are normal. No Chiari malformation. The v isualized upper cervical spine is normal. The visualized orbits and globes are normal. The visualized paranasal sinuses are clear. The mastoid air cells are clear. Normal flow voids within the vertebral, basilar, and internal carotid arteries indicating patency. IMPRESSION: 1. Focus of acute infarct in the left lateral thalamus. 2. Additional chronic bilateral thalamic lacunar infarcts. 3. 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 4. Extensive scattered FLAIR hyperintensities in the subcortical and periventricular deep white matte r, a nonspecific finding which may be due to chronic small vessel ischemic disease. Additional consid erations would include demyelinating disease or old vasculitis. FOR INTERNAL CODING PURPOSES Critical result: Findings discussed with the patient's nurse at 01/12/2022 3:09 PM. RESULT CODE: (C) Electronically signed by: Luis Angel Hwang MD (01/12/2022 3:09 PM) [facility]
[2022-01-12] MEDS ORDERED: CLOP75TA PO (16:41)
--- NOTE | 2022-01-12 16:55 | CARD ---
MR#: [id number] Date of Study: 01/12/2022 Ordering Physician: SEA RAYA, Referring Physician: SEA RAYA Tech: Jaky [facility] APPROVED REPORT EXAM: Two-dimensional and M-mode echocardiogram with Doppler and color Doppler. Other Information Quality : Technically LimitedHR: 66bpm Rhythm : NSR INDICATION Congestive Heart Failure RISK FACTORS Hypertension Obesity Diabetes 2D DIMENSIONS RVDd3.6 (2.9-3.5cm)Left Atrium(2D)3.6 (1.6-4.0cm) IVSd1.2 (0.7-1.1cm)Aortic Root(2D)3.7 (2.0-3.7cm) LVDd4.0 (3.9-5.9cm)LVOT Diameter2.1 (1.8-2.4cm) PWd1.2 (0.7-1.1cm)LVDs2.3 (2.5-4.0cm) FS (%) 40.9 %SV49.8 ml Aortic Valve AoV Peak Shahab.167.3cm/sAoV VTI27.7cm AO Peak GR.11.2mmHgLVOT VTI 28.56cm AO Mean GR.5mmHg Mitral Valve MV E Cyyrfaco21.8cm/sMV DECEL [id number] MV A Lkrvljcm579.4cm/sE/A Ratio0.8 TDI Lateral E' P. V6.44cm/sMedial E' P. V6.31cm/s E/Lateral E'12.9E/Medial E'13.1 LEFT VENTRICLE The left ventricle is normal size. There is mild concentric left ventricular hypertrophy. The left ve ntricular systolic function is normal . LV ejection fraction of 55 to 60%. There is normal LV segment al wall motion. Transmitral Doppler flow pattern is Grade I-abnormal relaxation pattern. RIGHT VENTRICLE The right ventricle is normal size. There is normal right ventricular wall thickness. The right ventr icular systolic function is normal. ATRIA The left atrium size is normal. The right atrium size is normal. The interatrial septum is intact wit h no evidence for an atrial septal defect or patent foramen ovale as noted on 2-D or Doppler imaging. AORTIC VALVE The aortic valve is normal in structure and function. Doppler and Color Flow revealed trace aortic re gurgitation. There is no significant aortic valvular stenosis. MITRAL VALVE The mitral valve is normal in structure and function. There is no evidence of mitral valve prolapse. Doppler and Color-flow revealed trace mitral regurgitation. TRICUSPID VALVE The tricuspid valve is normal in structure and function. Doppler and Color Flow revealed trace tricus pid regurgitation. GREAT VESSELS The aortic root is normal in size. The ascending aorta is normal in size. The IVC is normal in size a nd collapses >50% with inspiration. PERICARDIAL EFFUSION There is no evidence of significant pericardial effusion. Critical Notification Critical Value: No <Conclusion> The left ventricle is normal size. The left ventricular systolic function is normal . LV ejection fraction of 55 to 60%. There is mild concentric left ventricular hypertrophy. Doppler and Color Flow revealed trace aortic regurgitation. There is no significant aortic valvular stenosis. Doppler and Color-flow revealed trace mitral regurgitation. Doppler and Color Flow revealed trace tricuspid regurgitation. Signed by : Dustin Tuttle MD Electronically Approved : 01/12/2022 16:55:25
[2022-01-12 19:38] VITALS: BP 158/88
[2022-01-12] MEDS ORDERED: ATORVASTATIN CALCIUM 10 MG TABLET. PO SCH (21:00)
[2022-01-12] MEDS: INSULIN GLARGINE SYRINGE. SQ SCH (21:04)
[2022-01-12 21:55] LABS: BACTERIA,URINE MOD /HPF (0-FEW); RBC,URINE OCC /HPF (0-2)
[2022-01-12 21:56] LABS: TRICHOMONAS,URINE PRESENT
[2022-01-12 22:45] VITALS: BP 131/81
[2022-01-13 03:10] VITALS: BP 166/86
[2022-01-13 06:51] LABS: CALCIUM 8.8 mg/dL (8.5-10.1); CREATININE 0.9 mg/dL (0.6-1.0); GFR 81.2
[2022-01-13 07:00] VITALS: BP 166/104
[2022-01-13] MEDS: GABAPENTIN 300 MG CAPSULE. PO SCH ×2 (08:13→13:24)
[2022-01-13] MEDS: FUROSEMIDE 20 MG TABLET PO SCH (08:13)
[2022-01-13] MEDS: CLOPIDOGREL BISULFATE 75 MG TABLET PO SCH (08:13)
[2022-01-13] MEDS: CARVEDILOL 12.5 MG TABLET. PO SCH (08:15)
[2022-01-13] MEDS: INSULIN LISPRO 300 UNITS/3 ML VIAL. SQ SCH ×2 (08:19→12:24)
[2022-01-13] MEDS: HYDROcodone/APAP 5/325MG 1 TAB TABLET PO PRN (08:21)
[2022-01-13] MEDS: PANTOPRAZOLE 40 MG TABLET.DR. PO SCH (08:22)
[2022-01-13] MEDS: ASPIRIN CHEWABLE 81 MG TABLET. PO SCH (08:23)
[2022-01-13] MEDS ORDERED: LISINOPRIL 20 MG TABLET PO SCH (09:00)
--- NOTE | 2022-01-13 09:46 | PDOC ---
ABE YEH NBA 01/13/22 0946: CARDIO Progress Notes Date and Time Date of Service 01/13/22 Time of Evaluation 0945 Subjective Subjective: No Chest Pain, No shortness of breath, No Palpitations, Other (right-sided numbness) Vitals Vitals Vital Signs Date Time Temp Pulse Resp B/P (MAP) Pulse Ox O2 Delivery O2 Flow Rate FiO2 01/13/22 08:21 Room Air 01/13/22 08:15 68 166/86 01/13/22 07:00 98.2 16 98 98.2 Weight Weight [ ] Input and Output Intake and Output Intake and Output 01/13/22 07:00 Intake Total 600 ml Output Total 800 ml Balance -200 ml Intake Oral 600 ml Output Urine Total 800 ml Laboratory Labs Laboratory Tests Test 01/12/22 11:21 01/12/22 17:13 01/12/22 21:00 01/12/22 21:05 Glucose (Fingerstick) 263 mg/dL (70-99) 278 mg/dL (70-99) 349 mg/dL (70-99) Urine Collection Type Unknown Urine Color (Auto) Colorless Urine Turbidity Clear Urine pH (Auto) 5.0 (<5.0-8.0) Urine Specific [place] 1.026 (1.000-1.030) Urine Protein (Auto) Negative mg/dL (Negative) Urine Glucose (Auto)(UA) >=1000 mg/dL (Negative) Urine Ketones (Auto) Negative mg/dL (Negative) Urine Blood (Auto) Negative (Negative) Urine Nitrite (Auto) Negative (Negative) Urine Bilirubin (Auto) Negative (Negative) Urine Urobilinogen (Auto) Normal mg/dL (Normal) Urine Leukocyte Esterase (Auto) Negative (Negative) Urine RBC Occ /HPF (0-2) Urine WBC 1-4 /HPF (0-4) Urine Squamous Epithelial Cells Mod /LPF Urine Bacteria Mod /HPF (0-FEW) Urine Trichomonas Present Test 01/13/22 04:55 01/13/22 07:48 Erythrocyte Sedimentation Rate 25 (0-25) Sodium Level 136 mmol/L (136-145) Potassium Level 4.0 mmol/L (3.5-5.1) Chloride Level 102 mmol/L (98-107) Carbon Dioxide Level 26 mmol/L (21-32) Anion Gap 8 (6-14) Blood Urea Nitrogen 14 mg/dL (7-20) Creatinine 0.9 mg/dL (0.6-1.0) Estimated GFR (Cockcroft-Gault) 81.2 Glucose Level 244 mg/dL (70-99) Calcium Level 8.8 mg/dL (8.5-10.1) Glucose (Fingerstick) 221 mg/dL (70-99) Physical Exam HEENT: Neck Supple W Full Motion Chest: Symmetric LUNGS: Clear to Auscultation Heart: RRR Abdomen: Soft N/T Extremities: No Edema Neurology: alert, oriented, follow commands Assessment Assessment 1. Chest pain with atypical features, reproducible to palpation and most probably musculoskeletal. Myocardial infarction has been ruled out. We will consider ischemic evaluation as an outpatient. Follow up in our office has been arranged 2. Congestive heart failure, most probably acute on chronic diastolic. Patient received Lasix IV in the ED and is better compensated. Echo showed preserved LV systolic function. Oral Lasix therapy 3. Accelerated hypertension: Remains elevated. Renal arterial duplex did not show any significant ILIANA. BP now improved . 4. Diabetes mellitus type 2: Treat per IM 5. Right-sided tingling. MRI brain with acute stroke. Secondary prevention chadd ures. 6. Hyperlipidemia; [id number]. statin Justicifation of Admission Dx: Justifications for Admission: Justification of Admission Dx: Yes SEA RAYA MD 01/13/221841: CARDIO Progress Notes Assessment Assessment Patient seen and examined. Agree with SLAB STRIPPER's assessment and plan. Ac on chr diast HF better compensated CP with atypical features 2D echo showed normal LVF without any WMA Plan ischemic evaluation as outpatient ABE YEH APRN January 13, 2022 09:46 SEA RAYA MD January 13, 2022 18:42
[2022-01-13 11:00] VITALS: BP 136/87
--- NOTE | 2022-01-13 11:18 | PDOC ---
[facility] PROGRESS NOTE Date of Service DOS: DATE: 01/13/22 TIME: 11:16 Chief Complaint Chief Complaint Acute CVA - left lacunar infarct. Plavix, statin, HTN and DM control Chest pain with atypical features, reproducible to palpation and most probably musculoskeletal. Myocardial infarction has been ruled out. We will consider ischemic evaluation as an outpatient. Congestive heart failure, most probably acute on chronic diastolic. Patient received Lasix IV in the ED and is better compensated. Start oral Lasix. Check 2D echo to assess LV systolic function. Accelerated hypertension: Better controlled since admission. Increase lisinopril dose and continue Coreg and amlodipine. We will obtain renal arterial duplex scan for further evaluation. Diabetes mellitus type 2 - needs to restart medications Right sided numbness -evaluation till 12 hours after symptoms initially. Started on Plavix in addition to aspirin and high intensity statin. Still symptomatic and atypical CVA syndrome left lacunar infarct History of Present Illness History of Present Illness Ms Hutton is a 46-year-old female with PMHx HTN, DM2 who presented to ED on 01/10/22 c/o retrosternal chest pressure, 7/10 in severity, going on for approximately 1 week. She denied any exertional component. She also complained of associated shortness of breath but denied any orthopnea/PND, palpitations or syncope. She did state that the right side of her body has been tingling and numb and her face, noted to ED triage as well as cardiology and noted still persistent on 01/11/2022. 01/12: Restart amlodipine and lisinopril carvedilol. BP still elevated still with right-sided numbness including the face. Given the right-sided symptoms present on admission but been there since 01/09/2022 added Plavix and MRI is pending we will continue aspirin statin and follow-up on MRI results echocardiogram per cardiology. Needs improved BP control given symptoms consistent with possible recent CVA. Will need to establish primary care to continue medications beyond 3 months. She recently moved to [facility]. 01/13: Echo with mild LVH ejection fraction 55. In no significant valvular abnormalities. Seen ambulating with therapy today able to tolerate some exercise. Discussed stroke follow-up and importance of adherence to glycemic c ontrol blood pressure and Plavix and outpatient follow-up with neurology. Vitals/I&O Vitals/I&O: Vital Signs Date Time Temp Pulse Resp B/P (MAP) Pulse Ox O2 Delivery O2 Flow Rate FiO2 01/13/22 08:21 Room Air 01/13/22 08:15 68 166/86 01/13/22 07:00 98.2 16 98 98.2 I & O 01/12/22 01/12/22 01/13/22 15:00 23:00 07:00 Intake Total 600 ml 0 ml Output Total 800 ml Balance -200 ml 0 ml Physical Exam General: Alert, Oriented X3 Heart: Regular rate Abdomen: Soft Extremities: Other (1+ pitting edema) Labs Labs: Laboratory Tests Test 01/12/22 11:21 01/12/22 17:13 01/12/22 21:00 01/12/22 21:05 Glucose (Fingerstick) 263 mg/dL (70-99) 278 mg/dL (70-99) 349 mg/dL (70-99) Urine Collection Type Unknown Urine Color (Auto) Colorless Urine Turbidity Clear Urine pH (Auto) 5.0 (<5.0-8.0) Urine Specific [place] 1.026 (1.000-1.030) Urine Protein (Auto) Negative mg/dL (Negative) Urine Glucose (Auto)(UA) >=1000 mg/dL (Negative) Urine Ketones (Auto) Negative mg/dL (Negative) Urine Blood (Auto) Negative (Negative) Urine Nitrite (Auto) Negative (Negative) Urine Bilirubin (Auto) Negative (Negative) Urine Urobilinogen (Auto) Normal mg/dL (Normal) Urine Leukocyte Esterase (Auto) Negative (Negative) Urine RBC Occ /HPF (0-2) Urine WBC 1-4 /HPF (0-4) Urine Squamous Epithelial Cells Mod /LPF Urine Bacteria Mod /HPF (0-FEW) Urine Trichomonas Present Test 01/13/22 04:55 01/13/22 07:48 Erythrocyte Sedimentation Rate 25 (0-25) Sodium Level 136 mmol/L (136-145) Potassium Level 4.0 mmol/L (3.5-5.1) Chloride Level 102 mmol/L (98-107) Carbon Dioxide Level 26 mmol/L (21-32) Anion Gap 8 (6-14) Blood Urea Nitrogen 14 mg/dL (7-20) Creatinine 0.9 mg/dL (0.6-1.0) Estimated GFR (Cockcroft-Gault) 81.2 Glucose Level 244 mg/dL (70-99) Calcium Level 8.8 mg/dL (8.5-10.1) Glucose (Fingerstick) 221 mg/dL (70-99) Assessment and Plan Assessmemt and Plan Problems Medical Problems: (1) Bilateral lower extremity edema Status: Acute (2) Chest pain Status: Acute (3) CHF (congestive heart failure) Status: Acute (4) Diabetes mellitus Status: Acute (5) Hypertension Status: Acute Comment Review of Relevant I have reviewed the following items shannon (where applicable) has been applied. Medications: Current Medications Medications (Trade) Dose Ordered Sig/Blanca Route PRN Reason Start Time Stop Time Status Last Admin Dose Admin Lisinopril (Prinivil) 40 mg DAILY PO 01/13/22 09:00 01/13/22 08:13 Lisinopril (Prinivil) 20 mg 1X ONCE PO 01/12/22 15:00 01/12/22 15:01 DC 01/12/22 17:37 Atorvastatin Calcium (Lipitor) 10 mg QHS PO 01/12/22 21:00 01/12/22 20:54 Justifications for Admission Other Justification JESSIAC BLANCO MD January 13, 2022 11:18
--- NOTE | 2022-01-13 11:22 | PDOC3 ---
Discharge Summary Visit Information Date of Admission: January 10, 2022 Date of Discharge: January 13, 2022 Admitting Diagnosis: Right sided numbness Final Diagnosis Problems Medical Problems: (1) Bilateral lower extremity edema Status: Acute (2) Chest pain Status: Acute (3) CHF (congestive heart failure) Status: Acute (4) Diabetes mellitus Status: Acute (5) Hypertension Status: Acute Brief Hospital Course Allergies Allergies Coded Allergies Type Severity Reaction Last Updated Verified estradiol Allergy Intermediate 01/10/22 Yes oxycodone Allergy Intermediate 01/10/22 Yes prednisone Allergy Intermediate 01/10/22 Yes Vital Signs Vital Signs Date Time Temp Pulse Resp B/P (MAP) Pulse Ox O2 Delivery O2 Flow Rate FiO2 01/13/22 08:21 Room Air 01/13/22 08:15 68 166/86 01/13/22 07:00 98.2 16 98 98.2 Lab Results Laboratory Tests Test 01/11/22 11:25 01/11/22 16:20 01/11/22 20:23 01/12/22 02:45 Glucose (Fingerstick) 276 mg/dL (70-99) 249 mg/dL (70-99) 305 mg/dL (70-99) White Blood Count 4.6 x10^3/uL (4.0-11.0) Red Blood Count 4.59 x10^6/uL (3.50-5.40) Hemoglobin 14.0 g/dL (12.0-15.5) Hematocrit 40.4 % (36.0-47.0) Mean Corpuscular Volume 88 fL (79-100) Mean Corpuscular Hemoglobin 30 pg (25-35) Mean Corpuscular Hemoglobin Concent 35 g/dL (31-37) Red Cell Distribution Width 13.2 % (11.5-14.5) Platelet Count 217 x10^3/uL (140-400) Neutrophils (%) (Auto) 50 % (31-73) Lymphocytes (%) (Auto) 38 % (24-48) Monocytes (%) (Auto) 9 % (0-9) Eosinophils (%) (Auto) 3 % (0-3) Basophils (%) (Auto) 0 % (0-3) Neutrophils # (Auto) 2.3 x10^3/uL (1.8-7.7) Lymphocytes # (Auto) 1.8 x10^3/uL (1.0-4.8) Monocytes # (Auto) 0.4 x10^3/uL (0.0-1.1) Eosinophils # (Auto) 0.1 x10^3/uL (0.0-0.7) Basophils # (Auto) 0.0 x10^3/uL (0.0-0.2) Sodium Level 139 mmol/L (136-145) Potassium Level 3.5 mmol/L (3.5-5.1) Chloride Level 104 mmol/L (98-107) Carbon Dioxide Level 27 mmol/L (21-32) Anion Gap 8 (6-14) Blood Urea Nitrogen 11 mg/dL (7-20) Creatinine 0.9 mg/dL (0.6-1.0) Estimated GFR (Cockcroft-Gault) 81.2 BUN/Creatinine Ratio 12 (6-20) Glucose Level 210 mg/dL (70-99) Calcium Level 8.9 mg/dL (8.5-10.1) Total Bilirubin 0.2 mg/dL (0.2-1.0) Aspartate Amino Transf (AST/SGOT) 21 U/L (15-37) Alanine Aminotransferase (ALT/SGPT) 31 U/L (14-59) Alkaline Phosphatase 79 U/L (46-116) C-Reactive Protein, Quantitative 1.8 mg/L (0-3.3) Total Protein 6.7 g/dL (6.4-8.2) Albumin 2.7 g/dL (3.4-5.0) Albumin/Globulin Ratio 0.7 (1.0-1.7) Triglycerides Level 91 mg/dL (0-150) Cholesterol Level 188 mg/dL (0-200) LDL Cholesterol, Calculated 120 mg/dL (0-100) VLDL Cholesterol, Calculated 18 mg/dL (0-40) Non-HDL Cholesterol Calculated 138 mg/dL (0-129) HDL Cholesterol 50 mg/dL (40-60) Cholesterol/HDL Ratio 3.8 Vitamin B12 Level 710 pg/mL (247-911) Thyroid Stimulating Hormone (TSH) 0.996 uIU/mL (0.358-3.74) Test 01/12/22 07:34 01/12/22 11:21 01/12/22 17:13 01/12/22 21:00 Glucose (Fingerstick) 166 mg/dL (70-99) 263 mg/dL (70-99) 278 mg/dL (70-99) 349 mg/dL (70-99) Test 01/12/22 21:05 01/13/22 04:55 01/13/22 07:48 Urine Collection Type Unknown Urine Color (Auto) Colorless Urine Turbidity Clear Urine pH (Auto) 5.0 (<5.0-8.0) Urine Specific [place] 1.026 (1.000-1.030) Urine Protein (Auto) Negative mg/dL (Negative) Urine Glucose (Auto)(UA) >=1000 mg/dL (Negative) Urine Ketones (Auto) Negative mg/dL (Negative) Urine Blood (Auto) Negative (Negative) Urine Nitrite (Auto) Negative (Negative) Urine Bilirubin (Auto) Negative (Negative) Urine Urobilinogen (Auto) Normal mg/dL (Normal) Urine Leukocyte Esterase (Auto) Negative (Negative) Urine RBC Occ /HPF (0-2) Urine WBC 1-4 /HPF (0-4) Urine Squamous Epithelial Cells Mod /LPF Urine Bacteria Mod /HPF (0-FEW) Urine Trichomonas Present Erythrocyte Sedimentation Rate 25 (0-25) Sodium Level 136 mmol/L (136-145) Potassium Level 4.0 mmol/L (3.5-5.1) Chloride Level 102 mmol/L (98-107) Carbon Dioxide Level 26 mmol/L (21-32) Anion Gap 8 (6-14) Blood Urea Nitrogen 14 mg/dL (7-20) Creatinine 0.9 mg/dL (0.6-1.0) Estimated GFR (Cockcroft-Gault) 81.2 Glucose Level 244 mg/dL (70-99) Calcium Level 8.8 mg/dL (8.5-10.1) Glucose (Fingerstick) 221 mg/dL (70-99) Laboratory Tests Test 01/12/22 11:21 01/12/22 17:13 01/12/22 21:00 01/12/22 21:05 Glucose (Fingerstick) 263 mg/dL (70-99) 278 mg/dL (70-99) 349 mg/dL (70-99) Urine Collection Type Unknown Urine Color (Auto) Colorless Urine Turbidity Clear Urine pH (Auto) 5.0 (<5.0-8.0) Urine Specific [place] 1.026 (1.000-1.030) Urine Protein (Auto) Negative mg/dL (Negative) Urine Glucose (Auto)(UA) >=1000 mg/dL (Negative) Urine Ketones (Auto) Negative mg/dL (Negative) Urine Blood (Auto) Negative (Negative) Urine Nitrite (Auto) Negative (Negative) Urine Bilirubin (Auto) Negative (Negative) Urine Urobilinogen (Auto) Normal mg/dL (Normal) Urine Leukocyte Esterase (Auto) Negative (Negative) Urine RBC Occ /HPF (0-2) Urine WBC 1-4 /HPF (0-4) Urine Squamous Epithelial Cells Mod /LPF Urine Bacteria Mod /HPF (0-FEW) Urine Trichomonas Present Test 01/13/22 04:55 01/13/22 07:48 Erythrocyte Sedimentation Rate 25 (0-25) Sodium Level 136 mmol/L (136-145) Potassium Level 4.0 mmol/L (3.5-5.1) Chloride Level 102 mmol/L (98-107) Carbon Dioxide Level 26 mmol/L (21-32) Anion Gap 8 (6-14) Blood Urea Nitrogen 14 mg/dL (7-20) Creatinine 0.9 mg/dL (0.6-1.0) Estimated GFR (Cockcroft-Gault) 81.2 Glucose Level 244 mg/dL (70-99) Calcium Level 8.8 mg/dL (8.5-10.1) Glucose (Fingerstick) 221 mg/dL (70-99) Brief Hospital Course Ms Hutton is a 46-year-old female with PMHx HTN, DM2 who presented to ED on 01/10/22 c/o retrosternal chest pressure, 7/10 in severity, going on for approximately 1 week. She denied any exertional component. She also complained of associated shortness of breath but denied any orthopnea/PND, palpitations or syncope. She did state that the right side of her body has been tingling and numb and her face, noted to ED triage as well as cardiology and noted still persistent on 01/11/2022. 01/12: Restart amlodipine and lisinopril carvedilol. BP still elevated still with right-sided numbness including the face. Given the right-sided symptoms present on admission but been there since 01/09/2022 added Plavix and MRI is pending we will continue aspirin statin and follow-up on MRI results echocardiogram per cardiology. Needs improved BP control given symptoms c onsistent with possible recent CVA. Will need to establish primary care to continue medications beyond 3 months. She recently moved to [facility]. 01/13: Echo with mild LVH ejection fraction 55. In no significant valvular abnormalities. Seen ambulating with therapy today able to tolerate some exercise. Discussed stroke follow-up and importance of adherence to glycemic co ntrol blood pressure and Plavix and outpatient follow-up with neurology. Consults: Cardiology Problem list: Acute CVA - left lacunar infarct. Plavix, statin, HTN and DM control Chest pain with atypical features, reproducible to palpation and most probably musculoskeletal. Myocardial infarction has been ruled out. We will consider ischemic evaluation as an outpatient. Congestive heart failure, most probably acute on chronic diastolic. Patient received Lasix IV in the ED and is better compensated. Start oral Lasix. Check 2D echo to assess LV systolic function. Accelerated hypertension: Better controlled since admission. Increase lisinopril dose and continue Coreg and amlodipine. Normal renal arterial duplex scan for further evaluation. Diabetes mellitus type 2 - needs to restart medications Right sided numbness -evaluation till 12 hours after symptoms initially. Started on Plavix in addition to aspirin and high intensity statin. Still symptomatic and atypical CVA syndrome left lacunar infarct BRAIN W/O CONTRAST MRI BRAIN WO Date: 01/12/2022 1:22 PM Indication: rule out thalamic stroke, right sided numbness. Comparison: None. Technique: Multiplanar multisequence MRI of the brain was performed without intravenous contrast using the standard protocol. Findings: Focus of restricted diffusion in the left lateral thalamus. No acute hemorrhage. Greatest susceptibility artifact in the bilateral thalami and right parietal lobe consistent with chronic microhemorrhage. The ventricles are normal in size and configuration without hydrocephalus. Extensive FLAIR hyperintense signal in the subcortical and periventricular deep white matter, a nonspecific finding, most commonly seen with chronic small vessel ischemic disease. The scalp and calvarium are normal. The pituitary and sella are normal. No Chiari malformation. The visualized upper cervical spine is normal. The visualized orbits and globes are normal. The visualized paranasal sinuses are clear. The mastoid air cells are clear. Normal flow voids within the vertebral, basilar, and internal carotid arteries indicating patency. IMPRESSION: 1. Focus of acute infarct in the left lateral thalamus. 2. Additional chronic bilateral thalamic lacunar infarcts. 3. 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 4. Extensive scattered FLAIR hyperintensities in the subcortical and periventricular deep white matter, a nonspecific finding which may be due to chronic small vessel ischemic disease. Additional considerations would include demyelinating disease or old vasculitis. ECHOCARDIOGRAM 2D SPEC/COLOR MR#: [id number] [facility] Date of Study: 01/12/2022 Ordering Physician: SEA RAYA, Referring Physician: SEA RAYA, Tech: Jaky Burnett RDCS APPROVED REPORT EXAM: Two-dimensional and M-mode echocardiogram with Doppler and color Doppler. Other Information Quality : Technically Limited HR: 66bpm Rhythm : NSR INDICATION Congestive Heart Failure RISK FACTORS Hypertension Obesity Diabetes 2D DIMENSIONS RVDd 3.6 (2.9-3.5cm) Left Atrium(2D) 3.6 (1.6-4.0cm) IVSd 1.2 (0.7-1.1cm) Aortic Root(2D) 3.7 (2.0-3.7cm) LVDd 4.0 (3.9-5.9cm) LVOT Diameter 2.1 (1.8-2.4cm) PWd 1.2 (0.7-1.1cm) LVDs 2.3 (2.5-4.0cm) FS (%) 40.9 % SV 49.8 ml Aortic Valve AoV Peak Shahab. 167.3cm/s AoV VTI 27.7cm AO Peak GR. 11.2mmHg LVOT VTI 28.56cm AO Mean GR. 5mmHg Mitral Valve MV E Velocity 82.8cm/s MV DECEL TIME 274ms MV A Velocity 100.4cm/s E/A Ratio 0.8 TDI Lateral E' P. V 6.44cm/s Medial E' P. V 6.31cm/s E/Lateral E' 12.9 E/Medial E' 13.1 LEFT VENTRICLE The left ventricle is normal size. There is mild concentric left ventricular hypertrophy. The left ventricular systolic function is normal . LV ejection fraction of 55 to 60%. There is normal LV segmental wall motion. Transmitral Doppler flow pattern is Grade I-abnormal relaxation pattern. RIGHT VENTRICLE The right ventricle is normal size. There is normal right ventricular wall thickness. The right ventricular systolic function is normal. ATRIA The left atrium size is normal. The right atrium size is normal. The interatrial septum is intact with no evidence for an atrial septal defect or patent foramen ovale as noted on 2-D or Doppler imaging. AORTIC VALVE The aortic valve is normal in structure and function. Doppler and Color Flow revealed trace aortic regurgitation. There is no significant aortic valvular stenosis. MITRAL VALVE The mitral valve is normal in structure and function. There is no evidence of mitral valve prolapse. Doppler and Color-flow revealed trace mitral regurgitation. TRICUSPID VALVE The tricuspid valve is normal in structure and function. Doppler and Color Flow revealed trace tricuspid regurgitation. GREAT VESSELS The aortic root is normal in size. The ascending aorta is normal in size. The IVC is normal in size and collapses >50% with inspiration. PERICARDIAL EFFUSION There is no evidence of significant pericardial effusion. Critical Notification Critical Value: No <Conclusion> The left ventricle is normal size. The left ventricular systolic function is normal . LV ejection fraction of 55 to 60%. There is mild concentric left ventricular hypertrophy. Doppler and Color Flow revealed trace aortic regurgitation. There is no significant aortic valvular stenosis. Doppler and Color-flow revealed trace mitral regurgitation. Doppler and Color Flow revealed trace tricuspid regurgitation. Greater than 30 minutes spent on discharge home Discharge Information Condition at Discharge: Improved Follow Up: Weeks (1) Disposition/Orders: D/C to Home Scheduled Amlodipine Besylate (Amlodipine Besylate) 10 Mg Tablet, 10 MG PO DAILY for cardiac for 30 Days, #30 Ref 4 Prescribed by: JESSICA BLANCO MD on 01/12/22 1303 Aspirin (Children's Aspirin) 81 Mg Tab.chew, 1 TAB PO DAILY for cardiac for 30 Days, #30 Ref 0 (Reported) Entered as Reported by: NATHALIE COX on 01/10/22 1247 Last Action: Continued on 01/10/22 1533 by NATHALIE COX Carvedilol (Carvedilol) 25 Mg Tablet, 25 MG PO BIDWMEALS for CARDIAC for 30 Days, #60 Ref 4 Prescribed by: JESSICA BLANCO MD on 01/12/22 1303 Clopidogrel Bisulfate (Clopidogrel) 75 Mg Tablet, 75 MG PO DAILY for CVA for 30 Days, #30 Ref 11 Prescribed by: JESSICA BLANCO MD on 01/12/22 1641 Insulin Glargine,Hum.rec.anlog (Lantus Solostar) 100 Unit/1 Ml Insuln.pen, 30 UNIT SQ QHS for diabeties for 30 Days, #15 Ref 5 Prescribed by: JESSICA BLANCO MD on 01/12/22 1303 Insulin NPH Human Isophane (Novolin N Flexpen) 100 Unit/1 Ml Insuln.pen, 0-20 UNIT SQ TIDACHC for DM2 for 30 Days, #5 Ref 5 Prescribed by: JESSICA BLANCO MD on 01/12/22 1303 Lisinopril (Lisinopril) 20 Mg Tablet, 1 TAB PO DAILY for HTN/DM2 for 30 Days, #30 Ref 5 Prescribed by: JESSICA BLANCO MD on 01/12/22 1303 Omeprazole (Omeprazole) 40 Mg Capsule.dr, 1 CAP PO DAILY for GI, #30 Ref 3 (Reported) Entered as Reported by: NATHALIE COX on 01/10/22 1431 Last Action: Converted on 01/10/221532 by NATHALIE COX Discontinued Medications Lisinopril (Lisinopril) 10 Mg Tablet, 1 TAB PO DAILY for cardiac, #30 Ref 5 ( Reported) Discontinued Reason: Prescription changed Entered as Reported by: NATHALIE COX on 01/10/22 1246 Last Action: Continued on 01/10/221532 by NATHALIE COX Justicifation of Admission Dx: Justifications for Admission: Justification of Admission Dx: Yes JESSICA BLANCO MD January 13, 2022 11:21
[2022-01-13] MEDS ORDERED: ATOR40TA59 PO (13:11)
[2022-01-13] MEDS ORDERED: GABA600T7 PO (13:11)
--- NOTE | 2022-01-13 13:31 | NUR ---
SS following for discharge planning. SS reviewed pt chart and discussed with pt RN. Pt is from home with spouse and is currently on room air. PT/OT recommended home independent. Discharge order on the chart for home with self care.
[2022-01-14 19:14] LABS: ANA INTERP Negative (.)
== END 2022-01-13 13:30 | disposition home or self-care (01) | DRG 64 ==
LOC: ER 07:15 → 6 SOUTH 10:59
PROVIDERS: ADMIT Internal Medicine; ATTEND Internal Medicine
DX: I63.81 Other cerebral infarction due to occlusion or stenosis of small artery (principal); I50.33 Acute on chronic diastolic (congestive) heart failure; E11.9 Type 2 diabetes mellitus without complications; E78.5 Hyperlipidemia, unspecified; I11.0 Hypertensive heart disease with heart failure; Z82.49 Family history of ischemic heart disease and other diseases of the circulatory system; Z86.73 Personal history of transient ischemic attack (TIA), and cerebral infarction without residual deficits; Z90.49 Acquired absence of other specified parts of digestive tract; Z90.710 Acquired absence of both cervix and uterus; K21.9 Gastro-esophageal reflux disease without esophagitis; Z88.8 Allergy status to other drugs, medicaments and biological substances; R07.89 Other chest pain; Z20.822 Contact with and (suspected) exposure to COVID-19
CPT/HCPCS: 36415; 70551; 71045; 80048; 80053; 80061; 81001; 82607; 82962; 83036; 83690; 83880; 84443; 84484; 84703; 85025; 85379; 85651; 86038; 86140; 87426; 93005; 93306; 93975; J1815; J1940; 97535-GO; 99285-25; C8929; G0378